=== PATIENT | male | born 1980 | race Two or more races ===

== ENCOUNTER 2021-07-24 14:18 | Emergency (ER) | payer OTHER ==
[~2021-07-24] VITALS: Ht 157.5 cm; Wt 72.6 kg
--- NOTE | 2021-07-24 14:40 | NUR ---
TO ER BED 1, C/O OF NECK AND CHEST WALL PAIN SINCE SAT, PAIN LEVEL AT 410, [id number], BREATHING EVEN AND UNLABORED, [employer] AT BEDSIDE
--- NOTE | 2021-07-24 15:31 | NUR ---
BACK FROM CT
[2021-07-24] MEDS ORDERED: IBUP-1955 PO (17:14)
--- NOTE | 2021-07-24 17:25 | NUR ---
Patient discharged to [facility] with [place] [id number] in stable condition. Written and verbal after care instructions given. Patient verbalizes understanding of instruction.
[2021-07-24 17:28] VITALS: BP 110/76
[2021-07-24] MEDS ORDERED: IBUPROFEN 600 MG TABLET PO ONE (17:30)
== END 2021-07-24 17:28 ==
LOC: ER 14:21
DX: R07.89 Other chest pain (principal); M54.6 Pain in thoracic spine; R94.31 Abnormal electrocardiogram [ECG] [EKG]; V49.69XA Unspecified car occupant injured in collision with other motor vehicles in traffic accident, initial encounter; Y93.89 Activity, other specified; Y92.413 State road as the place of occurrence of the external cause; Y99.8 Other external cause status
CPT/HCPCS: 71046; 72070-TC